=== PATIENT | female | born 1970 | race Caucasian/White ===

== ENCOUNTER 2018-09-28 12:17 | Observation (INO) | payer MEDICARE, SELFPAY ==
[2018-09-28] VITALS (16 sets, daily range): BP systolic 117–158; BP diastolic 71–114; PULSE 73–86; RESP 15–20; TEMP 35.7–36.9; O2SAT 95–99; BMI 51.5; BMI 51.6; BMI 52.9
--- NOTE | 2018-09-28 12:58 | EKG12_ITS ---
Test Reason : CP Blood Pressure : / mmHG Vent. Rate : 079 BPM Atrial Rate : 079 BPM P-R Int : 144 ms QRS Dur : 098 ms QT Int : 378 ms P-R-T Axes : -13 -04 024 degrees QTc Int : 433 ms Normal sinus rhythm Normal ECG Confirmed by ANDER LUCIANO, ARISTEO ([id number]), offline editor RICHARD GARCIA ([id number]) on 10/01/2018 3:37:12 PM Referred By: KAREN Confirmed By:ARISTEO WORTHINGTON MD
--- NOTE | 2018-09-28 12:59 | RAD_ITS ---
STUDY: X-RAY CHEST REASON FOR EXAM: Female, 48 years old. Right-sided chest pain. TECHNIQUE: PA and lateral views of the chest. COMPARISON: None. FINDINGS: The lungs are clear and expanded. Scattered calcified granulomas. There is no demonstrated pleural abnormality. Normal size heart. Normal mediastinum and delicia. Normal visualized pulmonary arteries. Normal visualized aortic arch and descending thoracic aorta. There is a mild dextroscoliosis of the thoracic spine. Normal visualized ribs, clavicles, and shoulders. There is no demonstrated abnormality of the visualized soft tissue structures of the upper abdomen. RAD/Chest PA and Lateral IMPRESSION: Normal x-ray examination of the chest. Electronically Signed: Carlyle Easley MD at 13:25 EST Tel [phone], Service support ,
--- NOTE | 2018-09-28 13:34 | PCA ---
NO OLD EKG
[2018-09-28 14:04] LABS: Absolute Lymphocyte Count 1.81 X10^3/ul (0.83-4.51); Absolute Neutrophil Count 2.5 X10^3/uL (2.0-7.7); Basophil# 0.05 X10^3/uL; Eosinophil# 0.29 X10^3/uL; Eosinophils% 5.7 % (0-5); Hematocrit 38.2 % (37-47); Hemoglobin 12.3 g/dl (12.0-15.0); Lymphocyte # 1.81 X10^3/ul (4.0); Lymphocyte % 35.4 % (19-41); Mean Corp Hgb Conc 32.2 g/gl (32-36); Mean Corpuscular Hgb 28.1 pg (27.0-32.0); Mean Corpuscular Volume 87.2 fL (81-99); Mean Platelet Vol. 9.4 fl (6.2-12.0); Monocyte# 0.41 X10^3/uL; Neutrophil # 2.48 X10^3/uL (2.7-7.7); Neutrophil % 48.3 % (47-70); POSITIVE COUNT NO; POSITIVE DIFFERENTIAL NO; POSITIVE MORPHOLOGY NO; Platelet Count 155 K/mm3 (150-450); Red Blood Count 4.38 M/mm3 (4.2-5.4); White Blood Count 5.1 K/mm3 (4.4-11.0)
[2018-09-28 14:17] LABS: Anion Gap 5 (5-15); BUN 10 mg/dL (7-18); BUN/Creat Ratio 12.6 RATIO (10-20); Calcium,Total 9.5 mg/dL (8.5-10.1); Chloride 103 mmol/L (98-107); EST Glomerular Filtration Rate 82 mL/min (>60); Est Glom Filt Rate - Afr Amer 99 mL/min (>60); Estimated Creatinine Clearance 81.38 ml/min; Glucose 233 mg/dL (74-106); Potassium 4.2 mmol/L (3.5-5.1); Sodium Level 137 mmol/L (136-145)
[2018-09-28 14:20] LABS: Erythrocyte Sedimentation Rate 21 mm/hr (0-20)
[2018-09-28] MEDS: Aspirin 81 MG TAB.CHEW 324 MG PO (14:41)
[2018-09-28 15:02] LABS: D-Dimer Quantitative (DVT/PE) 0.39 FEU/ug/m (0.27-0.49)
--- NOTE | 2018-09-28 15:37 | ED.VISSUMM ---
- ER Visit Summary Date of Service: 09/28/18 Chief Complaint: S pain [] History of Present Illness: The patient is a 48 F [presents the emergency department complaint chest pain that started 3 weeks ago. Patient had intermittent discomfort especially with exertion. Patient states that her heart seems to race at times with activity she gets winded with minimal activity. Patient had some pressure in the center of her chest at times radiating to her shoulders. Patient states she had a stress that she thinks about 8 years ago before 1 of her surgeries and initially she flunked it but then she passed the second 1 apparently and she is never had a heart catheterization or any type of intervention. Patient denies recent travel or surgery. She denies any fever or recent illness.] Physical Examination: [HEENT-PERRLA, EOMI. Cranial nerves II through XII grossly intact. TMs clear. Mucous membranes moist. No adenopathy. Cardiovascular-regular rate and rhythm without murmur or ectopy Lungs-clear to auscultation, chest wall stable without crepitus or subcu emphysema Abdomen-normoactive bowel sounds, soft, nontender, no rebound or rigidity, no peritoneal signs. Extremities-intact ?4, normal range of motion, normal pulses, atraumatic] Test Results: [EKG obtained on arrival showed a sinus rhythm with a ventricular rate of 79 bpm. CBC with differential showing a 5.1, hemoglobin 12, hematocrit 30, platelet 155. Chemistries unremarkable. Troponin was less than 0.015. Sed rate was 21. D-dimer was 0.39. Chest x-ray showed nothing acute.] Emergency Department Course and Treatment: [Patient received aspirin in the emergency department and sublingual nitro which mostly resolved her pain.] Treatment Plan: [Admit for further workup and evaluation of her chest pain.] Disposition: [Admit] Impression: [Chest pain-rule out acute coronary syndrome] This note was generated with [employer] dictation software. It may contain incorrect words, spelling, and punctuation that were not noted in review of the chart prior to signing ED Disposition - Plan for ED Patient: Chief Complaint: Chest Pain Referrals: Letty Perknis MD [Primary Care Provider] -
--- NOTE | 2018-09-28 15:59 | PCM.HP.STD ---
Problem List (1) Chest pain Status: Acute Qualifiers: Chest pain type: unspecified Qualified Code(s): R07.9 - Chest pain, unspecified (2) HTN (hypertension) Status: Chronic Qualifiers: Hypertension type: essential hypertension Qualified Code(s): I10 - Essential (primary) hypertension (3) HLD (hyperlipidemia) Status: Chronic Qualifiers: Hyperlipidemia type: unspecified Qualified Code(s): E78.5 - Hyperlipidemia, unspecified (4) Morbid obesity Status: Chronic (5) SAMUEL (obstructive sleep apnea) Status: Chronic (6) Leg muscle spasm Status: Chronic Qualifiers: Laterality: bilateral Qualified Code(s): M62.838 - Other muscle spasm (7) Hypothyroidism Status: Chronic Qualifiers: Hypothyroidism type: unspecified Qualified Code(s): E03.9 - Hypothyroidism, unspecified History of Present Illness Date of Admission: 09/28/18 Chief Complaint: Chest pain The patient is a 48 y/o F w/ PMHx: Diabetes mellitus type II, Morbid Obesity, HTN, HLD, SAMUEL, GERD, Hypothyroidism, History of Uterine CA who presents to the [facility] ED on 09/28/18 with onset of R sided chest pressure in addition to midsternal region sharp stabbing pain with associated dyspnea occurring at rest and exertion both intermittently over the last 3 weeks w/ additionally onset exertional dyspnea with minimal exertion over the last 2 weeks additionally. Chest discomfort w/ these episodes with may last minutes 10/10, currently she rates some R sided pressure which has improved as 1-2/10. She notes having had a stress test > 8 years prior which was initially positive but repeat was negative prior to operative interventions at that time. In the ED work-up included T 96.3, heart rate 79, BP initially 150/114--> 136/85, respiratory rate 18, 95% on room air, CBC with WBC 5.1, heme globin 12.3, platelet 155, ESR 21, d-dimer 0.39, BMP with glucose 233, troponin < 0.015, EKG w/ NSR without acute findings, chest x-ray unremarkable. In the ED patient ministered aspirin, nitroglycerin sublingual x3. Past Medical History Past Medical History (Chronic Problems): Chronic Problems HTN (hypertension) (Chronic) HLD (hyperlipidemia) (Chronic) Morbid obesity (Chronic) SAMUEL (obstructive sleep apnea) (Chronic) Leg muscle spasm (Chronic) Hypothyroidism (Chronic) Allergies No Known Allergies Allergy (Verified 09/28/18 12:17) Home Medications: Ambulatory Orders Medication Instructions Recorded Ascorbic Acid [Vitamin C] 2,000 mg PO PRN PRN 09/28/18 Atorvastatin Calcium [Lipitor] 20 mg PO QHS 09/28/18 Diazepam 2 mg PO DAILY PRN PRN 09/28/18 Furosemide [Lasix] 20 mg PO DAILY PRN PRN 09/28/18 Glimepiride [Amaryl] 4 mg PO DAILY 09/28/18 Levothyroxine [Synthroid] 150 mcg PO DAILY 09/28/18 Lisinopril [Zestril] 40 mg PO DAILY 09/28/18 Metformin HCl [Glucophage] 1,000 mg PO BID 09/28/18 Metformin HCl [Glucophage] 500 mg PO LUNCH 09/28/18 Tizanidine HCl [Zanaflex] 4 mg PO DAILY PRN PRN 09/28/18 Surgical History: - - Total abdominal hysterectomy. 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 Smoking Status: Former smoker - Quit smoking approximately 2000, smoked approximately one half to three-quarter pack per day cigarettes for approximately 2 years. Tobacco Use: Non-smoker Alcohol: None Drugs: None - *Family History Maternal History Items: - - Patient notes a maternal and paternal family history of heart disease, hypertension, hyperlipidemia, diabetes and cancer. Paternal History Items: - - Patient notes a maternal and paternal family history of heart disease, hypertension, hyperlipidemia, diabetes and cancer. Review of Systems Constitutional: Reports: Fatigue. Denies: Chills, Fever, Weight Change HEENT: Denies: Head Aches, Sinus Congestion, Sinus Drainage Cardiovascular: Reports: Chest Pain, Chest Pressure, Heaviness, Palpitations. Denies: Light Headedness, Orthopnea, Paroxysmal Noc. Dyspnea, Syncope Respiratory: Reports: Shortness of breath upon exertion. Denies: Cough, Shortness of Breath, Shortness of breath at rest, Sputum production Gastrointestinal: Denies: Abdominal Pain, Nausea, Vomiting Genitourinary: Denies: Dysuria Musculoskeletal: Reports: Back Pain, Leg Pain. Denies: Joint Pain, Joint Tenderness Skin: Denies: Rash, Wounds Neurological: Denies: Numbness, Tingling, Focal weakness Psychiatric: Denies: Anxiety, Depression, Homicidal Ideations, Suicidal Ideations Hematologic/ Lymphatic: Denies: Easy Bruising, Easy Bleeding VTE Information - Inpt Only VTE Present on Admission: No VTE Mechan Device Prophylaxis: SCD's VTE Pharm Prophylaxis ordered?: Yes Patient Problems: Active and Suspected Problems Chest pain (Acute) Subjective: Seated upright in the ED bed, notes chest discomfort improved, only mild R pressure currently. Objective: Physical Examination: General: awake, alert, oriented x 3 and cooperative, seated upright in bed in no apparent distress. Skin: normal color, turgor, no icterus, cyanosis. HEENT: AT/NC, EOMI, PERRLA, MMM, no carotid bruits or JVD noted; however, thickened neck makes examination difficult. Lungs: CTA bilaterally, moderate effort, moderately decreased BL bases, no rales, ronchi or wheezing. Heart: Regular rate and rhythm; no gallop, rub audible. Abdomen: soft, morbidly obese, NTTP, ND, normal BS, unable to discern HSM secondary to habitus. Extremities: no cyanosis, clubbing, BL ankle non-pitting edema. Neurological: patient awake, alert, oriented x 3; cognitive function intact; pupils equally reactive to light and accomodation; cranial nerves II-XII grossly normal, moving all 4 extremities, no focal deficits, strength moderately globally decreased. Psychiatric: affect appears normal, no acute evidence of depressive or anxiety feelings. - Physical Exam Vital Signs Temp Pulse Resp BP Pulse Ox 96.3 F L 84 18 136/85 H 95 09/28/18 12:18 09/28/18 14:57 09/28/18 14:57 09/28/18 14:57 09/28/18 14:57 Oxygen Delivery Method Room Air Weight: 319 lb 10.724 oz Body Mass Index (BMI) 51.5 Laboratory Tests Past 24 Hrs 09/28/18 09/28/18 09/28/18 13:45 13:45 13:54 WBC 5.1 RBC 4.38 Hgb 12.3 Hct 38.2 MCV 87.2 MCH 28.1 MCHC 32.2 RDW 15.0 H RDW Differential 47.0 H Plt Count 155 MPV 9.4 Immature Gran % (Auto) 1.600 H Neut % (Auto) 48.3 Lymph % (Auto) 35.4 Brantley % (Auto) 8.0 Eos % (Auto) 5.7 H Baso % (Auto) 1.0 Absolute Neuts (auto) 2.5 Absolute Lymphs (auto) 1.81 Total Counted Not Reportable ESR 21 H D-Dimer Quant (PE/DVT) 0.39 Sodium Potassium Chloride Carbon Dioxide Anion Gap BUN Creatinine Estim Creat Clear Calc Est GFR (MDRD) Af Amer Est GFR (MDRD) Non-Af BUN/Creatinine Ratio Glucose Calcium Troponin I 09/28/18 13:54 WBC RBC Hgb Hct MCV MCH MCHC RDW RDW Differential Plt Count MPV Immature Gran % (Auto) Neut % (Auto) Lymph % (Auto) Brantley % (Auto) Eos % (Auto) Baso % (Auto) Absolute Neuts (auto) Absolute Lymphs (auto) Total Counted ESR D-Dimer Quant (PE/DVT) Sodium 137 Potassium 4.2 Chloride 103 Carbon Dioxide 29.0 Anion Gap 5 BUN 10 Creatinine 0.80 Estim Creat Clear Calc 81.38 Est GFR (MDRD) Af Amer 99 Est GFR (MDRD) Non-Af 82 BUN/Creatinine Ratio 12.6 Glucose 233 H Calcium 9.5 Troponin I < 0.015 Assessment/Plan All Active Problems Chest pain (Acute) The patient is a 48 y/o F w/ PMHx: Diabetes mellitus type II, Morbid Obesity, HTN, HLD, SAMUEL, GERD, Hypothyroidism, History of Uterine CA who presents to the [facility] ED on 09/28/18 with onset of R sided chest pressure in addition to midsternal region sharp stabbing pain with associated dyspnea occurring at rest and exertion both intermittently over the last 3 weeks w/ additionally onset exertional dyspnea with minimal exertion over the last 2 weeks additionally. (1) Chest Pain, Exertional Dyspnea: ED work-up included T 96.3, heart rate 79, BP initially 150/114--> 136/85, respiratory rate 18, 95% on room air, CBC with WBC 5.1, heme globin 12.3, platelet 155, ESR 21, d-dimer 0.39, BMP with glucose 233, troponin < 0.015, EKG w/ NSR without acute findings, chest x-ray unremarkable. Will admit to PCU, place on a monitored bed to assure no acute myocardial infarction with serial cardiac enzymes and EKGs. Patient is unable to perform exercise thus will proceed with AM nuclear stress testing. ASA, NG, morphine. FLP in AM. Mag pending. (2) Hypertension: Continue home regimen including lisinopril, PRN hydralazine. (3) Hyperlipidemia: Continue home statin regimen. AM FLP. (4) Chronic BL LE Muscle Spasms, Severe: Continue home PRN diazepam and tizanidine regimen. (5) Chronic Lumbar DDD: Frequent position changes encouraged. (6) Morbid Obesity: Weight loss and lifestyle changes encouraged, nutrition consulted. (7) Diabetes mellitus type II: Hold oral home regimen, continue home insulin regimen, ADA diet, accu checks w/ ISS, nutrition consulted for education and teaching, she notes most recently HgbA1c 6.9%. (8) Hypothyroidism: Continue home synthroid regimen, TSH and FT4 pending. (9) SAMUEL: CPAP q HS. (10) DVT Prophylaxis: SCDs, lovenox. Code Visit OBSV E&M: [id number] Initial observation care L3
--- NOTE | 2018-09-28 17:32 | EKG12_ITS ---
Test Reason : CP Blood Pressure : / mmHG Vent. Rate : 069 BPM Atrial Rate : 069 BPM P-R Int : 152 ms QRS Dur : 098 ms QT Int : 412 ms P-R-T Axes : -09 003 004 degrees QTc Int : 441 ms Normal sinus rhythm Normal ECG When compared with ECG of 28-SEP-2018 12:12, MANUAL COMPARISON REQUIRED, DATA IS UNCONFIRMED Confirmed by ANDER LUCIANO, ARISTEO ([id number]), senior editor RICHARD GARCIA ([id number]) on 10/01/2018 4:01:44 PM Referred By: HANH Confirmed By:ARISTEO WORTHINGTON MD
[2018-09-28 18:35] LABS: Magnesium 1.8 mg/dL (1.6-2.6); T4 Free Direct 1.18 ng/dL (0.76-1.46)
--- NOTE | 2018-09-28 19:53 | CPS ---
pt has own cpap at home -did not bring in -did not want hospitals
[2018-09-28 22:31] LABS: Bedside Glucose 175 mg/dL (70-110)
[2018-09-28] MEDS: Atorvastatin Calcium 20 MG Tablet PO (22:34)
[2018-09-28] MEDS: Famotidine 20 MG Tablet PO (22:34)
[2018-09-28] MEDS: Insulin Lispro 100 UNIT/ML INSULN.PEN SC (22:35)
[2018-09-28] MEDS: 0.9% Normal Saline 1,000 ML 100 ML IV (22:35)
[2018-09-29] VITALS (9 sets, daily range): BP systolic 101–149; BP diastolic 59–90; PULSE 70–81; RESP 14–18; TEMP 36.6–36.8; O2SAT 88–96
[2018-09-29 05:20] LABS: Hematocrit 36.2 % (37-47); Hemoglobin 11.5 g/dl (12.0-15.0); Mean Corp Hgb Conc 31.8 g/gl (32-36); Mean Corpuscular Hgb 28.3 pg (27.0-32.0); Mean Corpuscular Volume 89.2 fL (81-99); Mean Platelet Vol. 9.2 fl (6.2-12.0); Platelet Count 138 K/mm3 (150-450); RBC Distribution Width CV 15.2 % (11.6-14.6); RBC Distribution Width SD 48.9 fl (35.1-43.9); Red Blood Count 4.06 M/mm3 (4.2-5.4); White Blood Count 5.6 K/mm3 (4.4-11.0)
[2018-09-29 05:23] LABS: Scan Indicated on CBC? Y/N NO
[2018-09-29 05:30] LABS: Prothrombin Time (Protime)PT. 13.5 SECONDS (11.7-14.9)
[2018-09-29 05:31] LABS: Partial Thromboplast Time 26.5 Seconds (24.1-36.2)
--- NOTE | 2018-09-29 05:55 | EKG12_ITS ---
Test Reason : AM Blood Pressure : / mmHG Vent. Rate : 069 BPM Atrial Rate : 069 BPM P-R Int : 174 ms QRS Dur : 100 ms QT Int : 436 ms P-R-T Axes : 025 -10 -01 degrees QTc Int : 467 ms Normal sinus rhythm Normal ECG When compared with ECG of 28-SEP-2018 17:53, MANUAL COMPARISON REQUIRED, DATA IS UNCONFIRMED Confirmed by ANDER LUCIANO, ARISTEO ([id number]), manuscript editor RICHARD GARCIA ([id number]) on 10/01/2018 4:00:33 PM Referred By: HANH Confirmed By:ARISTEO WORTHINGTON MD
[2018-09-29 06:06] LABS: ALB/GLOB Ratio 0.9 RATIO (0.9-2.4); AST(SGOT) 13 U/L (15-37); Alanine Aminotransfer ALT/SGPT 29 U/L (13-56); Albumin, Serum 3.1 g/dL (3.2-5.0); Alkaline Phosphatase 75 U/L (45-117); Anion Gap 9 (5-15); BUN 12 mg/dL (7-18); BUN/Creat Ratio 14.4 RATIO (10-20); Calcium,Total 8.7 mg/dL (8.5-10.1); Chloride 103 mmol/L (98-107); Cholesterol 154 mg/dL (200); Creatinine, Serum 0.83 mg/dL (0.55-1.02); EST Glomerular Filtration Rate 78 mL/min (>60); Est Glom Filt Rate - Afr Amer 94 mL/min (>60); Estimated Creatinine Clearance 78.44 ml/min; Globulin 3.4 g/dL (2.2-4.2); Glucose 203 mg/dL (74-106); High Density Lipoprotein 23 mg/dL; Potassium 4.1 mmol/L (3.5-5.1); Protein, Total 6.5 g/dL (6.4-8.2); Sodium Level 142 mmol/L (136-145); Triglycerides 320 mg/dL; Very Low Density Lipoprotein 64 mg/dL (5-40)
[2018-09-29] MEDS: Lisinopril 40 MG Tablet PO (06:10)
[2018-09-29] MEDS: Levothyroxine 150 MCG Tablet PO (06:10)
[2018-09-29] MEDS: Aspirin E.C. 81 MG Tablet PO (06:11)
[2018-09-29] MEDS: Nystatin/Triamcin Oint 1 APPLIC TOPICAL (06:11)
[2018-09-29 07:01] LABS: Bedside Glucose 238 mg/dL (70-110)
--- NOTE | 2018-09-29 08:00 | STEWCON_ITS ---
Reason For Study: CHEST PAIN Stress Results Protocol: Dobutamine Stress Echocardiogram Maximum Predicted HR: 173 bpm Target HR: 147 bpm % Maximum Predicted HR: 92 % DurationHeart Rate Stage (mm:ss) (bpm) BP Dose Comment BASELINE 80 142/89 9 ML DILUTED DEFINITY GIVEN DURING STRESS DSE- 10 MCG 4:04 82 120/4710.00 DSE- 20 MCG 5:30 160 158/8120.00PRESSURE OVER R BREAST AREA INTO ARMPIT, A 5/10 RECOVERY 96 137/92 PRESSURE OVER R BREAST AREA A 1-210 Stress Duration: 9:34 mm:ss Maximum Stress HR: 160 bpm Baseline Echocardiogram Findings Stress Echo Wall motion Data Resting WM Intermediate WM Stress WM Resting Wall Motion Wall Motion Stress No regional wall motion No regional wall motion abnormalities noted. abnormalities noted. Ejection Fraction 60 %. Ejection Fraction 75 %. Stress Results Drug infusion was stopped due to achievement of target heart rate. Normal blood pressure response to exercise. EKG Data Baseline ECG demonstrates normal sinus rhythm with a rate of 75 beats per minute. Normal intervals are noted. The resting blood pressure was 142/89. The patient was titrated from 10 mcg to a maximum of 20 mcg of dobutamine during the stress. The maximum heart rate attained was 160 beats per minute. This was 92% of maximum predicted heart rate. At peak infusion, upsloping ST changes only were noted, which did not meet the criteria for ischemia. The peak blood pressure was 158/81. No arrhythmias noted. Interpretation Summary Normal resting LV systolic function. Nonstenotic valves. With stress, the LV size decreased and all segments augmented normally. The LVEF increased from 60% to 70%. Negative for ischemia at 92% of MPHR and at 1 METS. The patient was titrated from 10 mcg to a maximum of 20 mcg of dobutamine during the stress. Normal dobutamine stress echo Ordering Physician: Estephania Espinoza Referring Physician: Letty Perkins M.D. Performed By: Michell Hood RDCS
[2018-09-29] MEDS: Famotidine 20 MG Tablet PO (11:12)
[2018-09-29] MEDS: 0.9% NaCl Peripheral Flush Adult/Peds IV (11:12)
[2018-09-29] MEDS: Insulin Lispro 100 UNIT/ML INSULN.PEN SC (11:15)
[2018-09-29 11:50] LABS: Bedside Glucose 195 mg/dL (70-110)
--- NOTE | 2018-09-29 11:51 | DS.PCM_ITS ---
Discharge Date and Diagnosis Date of Admission: 09/28/18 Date of Discharge: 09/29/18 - Primary Discharge Diagnosis Active and Suspected Problems Chest pain (Acute) - Secondary Discharge Diagnosis Chronic Problems HTN (hypertension) (Chronic) HLD (hyperlipidemia) (Chronic) Morbid obesity (Chronic) SAMUEL (obstructive sleep apnea) (Chronic) Leg muscle spasm (Chronic) Hypothyroidism (Chronic) Hospital Course and Treatment Imaging Results: 09/29/18 08:00 Stress Test Echo W/Contrast [ECHO] Routine Laboratory Tests 09/29/18 09/29/18 09/29/18 Range/Units 11:13 06:52 05:05 WBC (4.4-11.0) K/mm3 RBC (4.2-5.4) M/mm3 Hgb (12.0-15.0) g/dl Hct (37-47) % MCV (81-99) fL MCH (27.0-32.0) pg MCHC (32-36) g/gl RDW (11.6-14.6) % RDW Differential (35.1-43.9) fl Plt Count (150-450) K/mm3 MPV (6.2-12.0) fl Immature Gran % (Auto) (0.0-0.9) % Neut % (Auto) (47-70) % Lymph % (Auto) (19-41) % [place] % (Auto) (0-10) % Eos % (Auto) (0-5) % Baso % (Auto) (0-1) % Absolute Neuts (auto) (2.0-7.7) X10^3/uL Absolute Lymphs (auto) (0.83-4.51) X10^3/ul Total Counted ESR (0-20) mm/hr PT 13.5 (11.7-14.9) SECONDS INR 1.0 APTT 26.5 (24.1-36.2) Seconds D-Dimer Quant (PE/DVT) (0.27-0.49) FEU/ug/m Sodium (136-145) mmol/L Potassium (3.5-5.1) mmol/L Chloride (98-107) mmol/L Carbon Dioxide (21.0-32.0) mmol/L Anion Gap (5-15) BUN (7-18) mg/dL Creatinine (0.55-1.02) mg/dL Estim Creat Clear Calc ml/min Est GFR (MDRD) Af Amer (>60) mL/min Est GFR (MDRD) Non-Af (>60) mL/min BUN/Creatinine Ratio (10-20) RATIO Glucose (74-106) mg/dL Calcium (8.5-10.1) mg/dL Magnesium (1.6-2.6) mg/dL Total Bilirubin (0.20-1.00) mg/dL AST (15-37) U/L ALT (13-56) U/L Alkaline Phosphatase (45-117) U/L Troponin I (<0.045) ng/mL Total Protein (6.4-8.2) g/dL Albumin (3.2-5.0) g/dL Globulin (2.2-4.2) g/dL Albumin/Globulin Ratio (0.9-2.4) RATIO Triglycerides ( - 199) mg/dL Cholesterol (200) mg/dL LDL Cholesterol (0-130) mg/dL VLDL Cholesterol (5-40) mg/dL HDL Cholesterol (40 - ) mg/dL TSH (0.358-3.74) uIU/mL Free T4 (0.76-1.46) ng/dL POC Glucose 195 H 238 H (70-110) mg/dL 09/29/18 09/29/18 09/28/18 Range/Units 05:05 05:05 22:26 WBC 5.6 (4.4-11.0) K/mm3 RBC 4.06 L (4.2-5.4) M/mm3 Hgb 11.5 L (12.0-15.0) g/dl Hct 36.2 L (37-47) % MCV 89.2 (81-99) fL MCH 28.3 (27.0-32.0) pg MCHC 31.8 L (32-36) g/gl RDW 15.2 H (11.6-14.6) % RDW Differential 48.9 H (35.1-43.9) fl Plt Count 138 L (150-450) K/mm3 MPV 9.2 (6.2-12.0) fl Immature Gran % (Auto) (0.0-0.9) % Neut % (Auto) (47-70) % Lymph % (Auto) (19-41) % [place] % (Auto) (0-10) % Eos % (Auto) (0-5) % Baso % (Auto) (0-1) % Absolute Neuts (auto) (2.0-7.7) X10^3/uL Absolute Lymphs (auto) (0.83-4.51) X10^3/ul Total Counted ESR (0-20) mm/hr PT (11.7-14.9) SECONDS INR APTT (24.1-36.2) Seconds D-Dimer Quant (PE/DVT) (0.27-0.49) FEU/ug/m Sodium 142 (136-145) mmol/L Potassium 4.1 (3.5-5.1) mmol/L Chloride 103 (98-107) mmol/L Carbon Dioxide 30.0 (21.0-32.0) mmol/L Anion Gap 9 (5-15) BUN 12 (7-18) mg/dL Creatinine 0.83 (0.55-1.02) mg/dL Estim Creat Clear Calc 78.44 ml/min Est GFR (MDRD) Af Amer 94 (>60) mL/min Est GFR (MDRD) Non-Af 78 (>60) mL/min BUN/Creatinine Ratio 14.4 (10-20) RATIO Glucose 203 H (74-106) mg/dL Calcium 8.7 (8.5-10.1) mg/dL Magnesium (1.6-2.6) mg/dL Total Bilirubin 0.50 (0.20-1.00) mg/dL AST 13 L (15-37) U/L ALT 29 (13-56) U/L Alkaline Phosphatase 75 (45-117) U/L Troponin I (<0.045) ng/mL Total Protein 6.5 (6.4-8.2) g/dL Albumin 3.1 L (3.2-5.0) g/dL Globulin 3.4 (2.2-4.2) g/dL Albumin/Globulin Ratio 0.9 (0.9-2.4) RATIO Triglycerides 320 H ( - 199) mg/dL Cholesterol 154 (200) mg/dL LDL Cholesterol 67 (0-130) mg/dL VLDL Cholesterol 64 H (5-40) mg/dL HDL Cholesterol 23 L (40 - ) mg/dL TSH 2.00 (0.358-3.74) uIU/mL Free T4 (0.76-1.46) ng/dL POC Glucose 175 H (70-110) mg/dL 09/28/18 09/28/18 09/28/18 Range/Units 21:20 18:18 13:54 WBC (4.4-11.0) K/mm3 RBC (4.2-5.4) M/mm3 Hgb (12.0-15.0) g/dl Hct (37-47) % MCV (81-99) fL MCH (27.0-32.0) pg MCHC (32-36) g/gl RDW (11.6-14.6) % RDW Differential (35.1-43.9) fl Plt Count (150-450) K/mm3 MPV (6.2-12.0) fl Immature Gran % (Auto) (0.0-0.9) % Neut % (Auto) (47-70) % Lymph % (Auto) (19-41) % [place] % (Auto) (0-10) % Eos % (Auto) (0-5) % Baso % (Auto) (0-1) % Absolute Neuts (auto) (2.0-7.7) X10^3/uL Absolute Lymphs (auto) (0.83-4.51) X10^3/ul Total Counted ESR (0-20) mm/hr PT (11.7-14.9) SECONDS INR APTT (24.1-36.2) Seconds D-Dimer Quant (PE/DVT) (0.27-0.49) FEU/ug/m Sodium (136-145) mmol/L Potassium (3.5-5.1) mmol/L Chloride (98-107) mmol/L Carbon Dioxide (21.0-32.0) mmol/L Anion Gap (5-15) BUN (7-18) mg/dL Creatinine (0.55-1.02) mg/dL Estim Creat Clear Calc ml/min Est GFR (MDRD) Af Amer (>60) mL/min Est GFR (MDRD) Non-Af (>60) mL/min BUN/Creatinine Ratio (10-20) RATIO Glucose (74-106) mg/dL Calcium (8.5-10.1) mg/dL Magnesium 1.8 (1.6-2.6) mg/dL Total Bilirubin (0.20-1.00) mg/dL AST (15-37) U/L ALT (13-56) U/L Alkaline Phosphatase (45-117) U/L Troponin I < 0.015 < 0.015 (<0.045) ng/mL Total Protein (6.4-8.2) g/dL Albumin (3.2-5.0) g/dL Globulin (2.2-4.2) g/dL Albumin/Globulin Ratio (0.9-2.4) RATIO Triglycerides ( - 199) mg/dL Cholesterol (200) mg/dL LDL Cholesterol (0-130) mg/dL VLDL Cholesterol (5-40) mg/dL HDL Cholesterol (40 - ) mg/dL TSH (0.358-3.74) uIU/mL Free T4 1.18 (0.76-1.46) ng/dL POC Glucose (70-110) mg/dL 09/28/18 09/28/18 09/28/18 Range/Units 13:54 13:54 13:45 WBC 5.1 (4.4-11.0) K/mm3 RBC 4.38 (4.2-5.4) M/mm3 Hgb 12.3 (12.0-15.0) g/dl Hct 38.2 (37-47) % MCV 87.2 (81-99) fL MCH 28.1 (27.0-32.0) pg MCHC 32.2 (32-36) g/gl RDW 15.0 H (11.6-14.6) % RDW Differential 47.0 H (35.1-43.9) fl Plt Count 155 (150-450) K/mm3 MPV 9.4 (6.2-12.0) fl Immature Gran % (Auto) 1.600 H (0.0-0.9) % Neut % (Auto) 48.3 (47-70) % Lymph % (Auto) 35.4 (19-41) % [place] % (Auto) 8.0 (0-10) % Eos % (Auto) 5.7 H (0-5) % Baso % (Auto) 1.0 (0-1) % Absolute Neuts (auto) 2.5 (2.0-7.7) X10^3/uL Absolute Lymphs (auto) 1.81 (0.83-4.51) X10^3/ul Total Counted Not Reportable ESR (0-20) mm/hr PT (11.7-14.9) SECONDS INR APTT (24.1-36.2) Seconds D-Dimer Quant (PE/DVT) 0.39 (0.27-0.49) FEU/ug/m Sodium 137 (136-145) mmol/L Potassium 4.2 (3.5-5.1) mmol/L Chloride 103 (98-107) mmol/L Carbon Dioxide 29.0 (21.0-32.0) mmol/L Anion Gap 5 (5-15) BUN 10 (7-18) mg/dL Creatinine 0.80 (0.55-1.02) mg/dL Estim Creat Clear Calc 81.38 ml/min Est GFR (MDRD) Af Amer 99 (>60) mL/min Est GFR (MDRD) Non-Af 82 (>60) mL/min BUN/Creatinine Ratio 12.6 (10-20) RATIO Glucose 233 H (74-106) mg/dL Calcium 9.5 (8.5-10.1) mg/dL Magnesium (1.6-2.6) mg/dL Total Bilirubin (0.20-1.00) mg/dL AST (15-37) U/L ALT (13-56) U/L Alkaline Phosphatase (45-117) U/L Troponin I < 0.015 (<0.045) ng/mL Total Protein (6.4-8.2) g/dL Albumin (3.2-5.0) g/dL Globulin (2.2-4.2) g/dL Albumin/Globulin Ratio (0.9-2.4) RATIO Triglycerides ( - 199) mg/dL Cholesterol (200) mg/dL LDL Cholesterol (0-130) mg/dL VLDL Cholesterol (5-40) mg/dL HDL Cholesterol (40 - ) mg/dL TSH (0.358-3.74) uIU/mL Free T4 (0.76-1.46) ng/dL POC Glucose (70-110) mg/dL 09/28/18 Range/Units 13:45 WBC (4.4-11.0) K/mm3 RBC (4.2-5.4) M/mm3 Hgb (12.0-15.0) g/dl Hct (37-47) % MCV (81-99) fL MCH (27.0-32.0) pg MCHC (32-36) g/gl RDW (11.6-14.6) % RDW Differential (35.1-43.9) fl Plt Count (150-450) K/mm3 MPV (6.2-12.0) fl Immature Gran % (Auto) (0.0-0.9) % Neut % (Auto) (47-70) % Lymph % (Auto) (19-41) % [place] % (Auto) (0-10) % Eos % (Auto) (0-5) % Baso % (Auto) (0-1) % Absolute Neuts (auto) (2.0-7.7) X10^3/uL Absolute Lymphs (auto) (0.83-4.51) X10^3/ul Total Counted ESR 21 H (0-20) mm/hr PT (11.7-14.9) SECONDS INR APTT (24.1-36.2) Seconds D-Dimer Quant (PE/DVT) (0.27-0.49) FEU/ug/m Sodium (136-145) mmol/L Potassium (3.5-5.1) mmol/L Chloride (98-107) mmol/L Carbon Dioxide (21.0-32.0) mmol/L Anion Gap (5-15) BUN (7-18) mg/dL Creatinine (0.55-1.02) mg/dL Estim Creat Clear Calc ml/min Est GFR (MDRD) Af Amer (>60) mL/min Est GFR (MDRD) Non-Af (>60) mL/min BUN/Creatinine Ratio (10-20) RATIO Glucose (74-106) mg/dL Calcium (8.5-10.1) mg/dL Magnesium (1.6-2.6) mg/dL Total Bilirubin (0.20-1.00) mg/dL AST (15-37) U/L ALT (13-56) U/L Alkaline Phosphatase (45-117) U/L Troponin I (<0.045) ng/mL Total Protein (6.4-8.2) g/dL Albumin (3.2-5.0) g/dL Globulin (2.2-4.2) g/dL Albumin/Globulin Ratio (0.9-2.4) RATIO Triglycerides ( - 199) mg/dL Cholesterol (200) mg/dL LDL Cholesterol (0-130) mg/dL VLDL Cholesterol (5-40) mg/dL HDL Cholesterol (40 - ) mg/dL TSH (0.358-3.74) uIU/mL Free T4 (0.76-1.46) ng/dL POC Glucose (70-110) mg/dL Operations: None Procedures: Stress test Summary of Care Provided: The patient is a 48 year old F [] Patient is a 48-year-old female with a history of hypertension, hyperlipidemia, obstructive sleep apnea, hypothyroidism and morbid obesity. She was admitted on 09/28/2018 with complaint of right-sided chest pressure in addition to pain in the midsternal region with associated exertional dyspnea also dyspnea at rest. Initial troponin was negative and EKG showed no acute ST changes. She was admitted and managed for chest pain to rule out ACS. She had a stress echocardiogram done on 09/29/2018 which was negative for any ischemia and showed preserved ejection fraction. Patient remained stable and was discharged home on 09/29/2018 with a prescription for sublingual nitroglycerin and p.o. aspirin. She is follow-up with her PCP in 1 week. Patient seen and examined prior to discharge. She had no complaints and felt well. She denied any fever or chills, any cough or chest pain, any shortness of breath, abdominal pain, any diarrhea vomiting. Review of systems otherwise negative. Labs and vitals reviewed. Home medications reviewed and reconciled. - Physical Exam General: Alert, Oriented x3, Cooperative HEENT: Atraumatic, PERRLA, EOMI, Normocephalic Oral: Moist Mucosa Neck: Supple, No JVD, Negative Carotid Bruits Lungs: Clear to auscultation, Normal air movement, No rhonchi, No wheeze, No rales Cardiovascular: Regular rate, Regular Rhythm, Normal S1, Normal S2, No murmurs Abdomen: Bowel Sounds Present, Soft, Non Tender, Non-Distended, No Hepato- splenomegaly Extremities: No clubbing, No cyanosis, No edema, Capillary Refill Less than 3 Seconds Skin: No rashes, No breakdown Musculoskeletal: No Tenderness to Palpation of Joints or Extremities Lymphatic: No Cervical, Supraclavicular, or Inguinal Adenopathy Neurological: Cranial nerves II-XII grossly intact, Neuro grossly intact, Motor Exam 5/5 strength throughout Psych/Mental Status: Normal Affect, Appropriate, Alert and oriented to time, place, person, mood and affect Vital Signs Temp Pulse Resp BP Pulse Ox 98.3 F 81 14 101/59 L 88 09/29/18 07:14 09/29/18 11:09 09/29/18 07:14 09/29/18 07:14 09/29/18 07:40 Oxygen Flow Rate (L/min) 2 Oxygen Delivery Method Nasal Cannula Weight: 327 lb 13.238 oz Body Mass Index (BMI) 52.9 Intake and Output for Last 24 Hours 09/27/18 09/28/18 09/29/18 23:59 23:59 23:59 Intake Total 580 / 580 586 / 586 Balance 580 / 580 586 / 586 Laboratory Tests Past 24 Hrs 09/28/18 09/28/18 09/28/18 13:45 13:45 13:54 WBC 5.1 RBC 4.38 Hgb 12.3 Hct 38.2 MCV 87.2 MCH 28.1 MCHC 32.2 RDW 15.0 H RDW Differential 47.0 H Plt Count 155 MPV 9.4 Immature Gran % (Auto) 1.600 H Neut % (Auto) 48.3 Lymph % (Auto) 35.4 [place] % (Auto) 8.0 Eos % (Auto) 5.7 H Baso % (Auto) 1.0 Absolute Neuts (auto) 2.5 Absolute Lymphs (auto) 1.81 Total Counted Not Reportable ESR 21 H PT INR APTT D-Dimer Quant (PE/DVT) 0.39 Sodium Potassium Chloride Carbon Dioxide Anion Gap BUN Creatinine Estim Creat Clear Calc Est GFR (MDRD) Af Amer Est GFR (MDRD) Non-Af BUN/Creatinine Ratio Glucose Calcium Magnesium Total Bilirubin AST ALT Alkaline Phosphatase Troponin I Total Protein Albumin Globulin Albumin/Globulin Ratio Triglycerides Cholesterol LDL Cholesterol VLDL Cholesterol HDL Cholesterol TSH Free T4 09/28/18 09/28/18 09/28/18 13:54 13:54 18:18 WBC RBC Hgb Hct MCV MCH MCHC RDW RDW Differential Plt Count MPV Immature Gran % (Auto) Neut % (Auto) Lymph % (Auto) [place] % (Auto) Eos % (Auto) Baso % (Auto) Absolute Neuts (auto) Absolute Lymphs (auto) Total Counted ESR PT INR APTT D-Dimer Quant (PE/DVT) Sodium 137 Potassium 4.2 Chloride 103 Carbon Dioxide 29.0 Anion Gap 5 BUN 10 Creatinine 0.80 Estim Creat Clear Calc 81.38 Est GFR (MDRD) Af Amer 99 Est GFR (MDRD) Non-Af 82 BUN/Creatinine Ratio 12.6 Glucose 233 H Calcium 9.5 Magnesium 1.8 Total Bilirubin AST ALT Alkaline Phosphatase Troponin I < 0.015 < 0.015 Total Protein Albumin Globulin Albumin/Globulin Ratio Triglycerides Cholesterol LDL Cholesterol VLDL Cholesterol HDL Cholesterol TSH Free T4 1.18 09/28/18 09/29/18 09/29/18 21:20 05:05 05:05 WBC 5.6 RBC 4.06 L Hgb 11.5 L Hct 36.2 L MCV 89.2 MCH 28.3 MCHC 31.8 L RDW 15.2 H RDW Differential 48.9 H Plt Count 138 L MPV 9.2 Immature Gran % (Auto) Neut % (Auto) Lymph % (Auto) [place] % (Auto) Eos % (Auto) Baso % (Auto) Absolute Neuts (auto) Absolute Lymphs (auto) Total Counted ESR PT INR APTT D-Dimer Quant (PE/DVT) Sodium 142 Potassium 4.1 Chloride 103 Carbon Dioxide 30.0 Anion Gap 9 BUN 12 Creatinine 0.83 Estim Creat Clear Calc 78.44 Est GFR (MDRD) Af Amer 94 Est GFR (MDRD) Non-Af 78 BUN/Creatinine Ratio 14.4 Glucose 203 H Calcium 8.7 Magnesium Total Bilirubin 0.50 AST 13 L ALT 29 Alkaline Phosphatase 75 Troponin I < 0.015 Total Protein 6.5 Albumin 3.1 L Globulin 3.4 Albumin/Globulin Ratio 0.9 Triglycerides 320 H Cholesterol 154 LDL Cholesterol 67 VLDL Cholesterol 64 H HDL Cholesterol 23 L TSH 2.00 Free T4 09/29/18 05:05 WBC RBC Hgb Hct MCV MCH MCHC RDW RDW Differential Plt Count MPV Immature Gran % (Auto) Neut % (Auto) Lymph % (Auto) [place] % (Auto) Eos % (Auto) Baso % (Auto) Absolute Neuts (auto) Absolute Lymphs (auto) Total Counted ESR PT 13.5 INR 1.0 APTT 26.5 D-Dimer Quant (PE/DVT) Sodium Potassium Chloride Carbon Dioxide Anion Gap BUN Creatinine Estim Creat Clear Calc Est GFR (MDRD) Af Amer Est GFR (MDRD) Non-Af BUN/Creatinine Ratio Glucose Calcium Magnesium Total Bilirubin AST ALT Alkaline Phosphatase Troponin I Total Protein Albumin Globulin Albumin/Globulin Ratio Triglycerides Cholesterol LDL Cholesterol VLDL Cholesterol HDL Cholesterol TSH Free T4 POC Glucose 09/29/18 09/29/18 09/28/18 11:13 06:52 22:26 POC Glucose 195 H 238 H 175 H Diagnostic Data Chest X-Ray 09/28/18 12:59 IMPRESSION: Normal x-ray examination of the chest. Electronically Signed: Carlyle Easley MD at 13:25 EST Tel [phone], Service support , Stress echocardiogram(09/29/18) Interpretation Summary Normal resting LV systolic function. Nonstenotic valves. With stress, the LV size decreased and all segments augmented normally. The LVEF increased from 60% to 70%. Negative for ischemia at 92% of MPHR and at 1 METS. The patient was titrated from 10 mcg to a maximum of 20 mcg of dobutamine during the stress. Normal dobutamine stress echo Discharge Diet: Low fat/ Low Cholesterol Discharge Activity: Return to Normal Activity Weight Bearing Status: Weight bearing as tolerated Call your doctor if you observe: Shortness of breath, Chest pain, Increased palpitations (irregular heartbeat) Home Medications: Medications to take at Discharge Ascorbic Acid [Vitamin C] 2,000 mg PO PRN PRN 09/28/18 Atorvastatin Calcium [Lipitor] 20 mg PO QHS 09/28/18 Diazepam 2 mg PO DAILY PRN PRN 09/28/18 Furosemide [Lasix] 20 mg PO DAILY PRN PRN 09/28/18 Glimepiride [Amaryl] 4 mg PO DAILY 09/28/18 Levothyroxine [Synthroid] 150 mcg PO DAILY 09/28/18 Lisinopril [Zestril] 40 mg PO DAILY 09/28/18 Metformin HCl [Glucophage] 1,000 mg PO BID 09/28/18 Metformin HCl [Glucophage] 500 mg PO LUNCH 09/28/18 Tizanidine HCl [Zanaflex] 4 mg PO DAILY PRN PRN 09/28/18 Aspirin E.C. [Ecotrin] 81 mg PO DAILY@0800 #30 tab 09/29/18 Nitroglycerin [Nitrostat] 0.4 mg SUBLINGUAL Q5M PRN #30 tab 09/29/18 Following Prescrptions Were Given to Patient: Aspirin E.C. [Ecotrin] 81 mg PO DAILY@0800 #30 tab Nitroglycerin [Nitrostat] 0.4 mg SUBLINGUAL Q5M PRN #30 tab PRN Reason: Chest Pain Primary Care Physician: Letty Perkins MD [Primary Care Provider] - Please follow up with your Primary Care Physician in: one week Patient Instructions: What Is Angina?, Warning Signs of a Heart Attack Disposition: Home Minutes spent on discharge:: 37 Patient Condition:: Stable Medical Necessity - Tobacco Use Smoking Status: Former smoker - Quit smoking approximately 2000, smoked approximately one half to three-quarter pack per day cigarettes for approximately 2 years. Tobacco Use: Non-smoker Meaningful Use Info Meaningful Use Diagnoses (Choose all that apply): None applicable Code Visit Inpatient E&M: 19277 Disch Hosp
--- NOTE | 2018-09-29 11:51 | DCINST_ITS ---
- Discharge Diagnoses Current Active Problems: Current Active and Chronic Problems Chest pain (Acute) HTN (hypertension) (Chronic) HLD (hyperlipidemia) (Chronic) Morbid obesity (Chronic) SAMUEL (obstructive sleep apnea) (Chronic) Leg muscle spasm (Chronic) Hypothyroidism (Chronic) You will use the following diet at home:: Cardiac Your food should be the consistency of: Regular Your liquids should be the consistency of: Regular/Thin Discharge Activity: Return to Normal Activity Weight Bearing Status: Weight bearing as tolerated Call your doctor if you observe: Shortness of breath, Chest pain, Increased palpitations (irregular heartbeat) Instructions: What Is Angina?, Warning Signs of a Heart Attack Allergies/Adverse Reactions: Allergies No Known Allergies Allergy (Verified 09/28/18 12:17) Medications to take at Discharge Ascorbic Acid [Vitamin C] 2,000 mg PO PRN PRN 09/28/18 Atorvastatin Calcium [Lipitor] 20 mg PO QHS 09/28/18 Diazepam 2 mg PO DAILY PRN PRN 09/28/18 Furosemide [Lasix] 20 mg PO DAILY PRN PRN 09/28/18 Glimepiride [Amaryl] 4 mg PO DAILY 09/28/18 Levothyroxine [Synthroid] 150 mcg PO DAILY 09/28/18 Lisinopril [Zestril] 40 mg PO DAILY 09/28/18 Metformin HCl [Glucophage] 1,000 mg PO BID 09/28/18 Metformin HCl [Glucophage] 500 mg PO LUNCH 09/28/18 Tizanidine HCl [Zanaflex] 4 mg PO DAILY PRN PRN 09/28/18 Aspirin E.C. [Ecotrin] 81 mg PO DAILY@0800 #30 tab 09/29/18 Nitroglycerin [Nitrostat] 0.4 mg SUBLINGUAL Q5M PRN #30 tab 09/29/18 The following prescriptions were given: Aspirin E.C. [Ecotrin] 81 mg PO DAILY@0800 #30 tab Nitroglycerin [Nitrostat] 0.4 mg SUBLINGUAL Q5M PRN #30 tab PRN Reason: Chest Pain Primary Care Physician: Letty Perkins MD [Primary Care Provider] - Please follow up with your Primary Care Physician in: one week Test Results: Test results from this visit will be discussed in further detail at your follow- up appointment, if applicable. Proposed Discharge Date: 09/29/18
--- NOTE | 2018-09-29 12:46 | PHA.DC.COU ---
Pharmacy Services has performed discharge medication counseling for this patient. The patient was counseled on the following discharge medications and changes in medications for homegoing review. Aspirin E.C. [Ecotrin] 81 mg PO DAILY@0800 #30 tab 09/29/18 Nitroglycerin [Nitrostat] 0.4 mg SUBLINGUAL Q5M PRN #30 tab 09/29/18 The Reason for Use, instructions for use, and potential side effects were reviewed for all new medications. The patient's questions regarding all of their medications were answered. The patient was able to verbally demonstrate an understanding of their discharge medications.
== END 2018-09-29 11:50 | disposition home or self-care (01) ==
LOC: ED 16:28 → PCU 16:56
PROVIDERS: Admitting Provider Family Medicine; Emergency Provider Emergency Medicine; Family Provider Internal Medicine; PCP Internal Medicine; Visit Provider Student in an Organized Health Care Education/Training Program
DX: R07.89 Other chest pain (principal); I10 Essential (primary) hypertension; E78.5 Hyperlipidemia, unspecified; E66.01 Morbid (severe) obesity due to excess calories; Z68.43 Body mass index [BMI] 50.0-59.9, adult; Z71.3 Dietary counseling and surveillance; G47.33 Obstructive sleep apnea (adult) (pediatric); Z79.899 Other long term (current) drug therapy; Z79.84 Long term (current) use of oral hypoglycemic drugs; E03.9 Hypothyroidism, unspecified; Z87.891 Personal history of nicotine dependence; K21.9 Gastro-esophageal reflux disease without esophagitis; Z85.42 Personal history of malignant neoplasm of other parts of uterus; E11.9 Type 2 diabetes mellitus without complications; R06.00 Dyspnea, unspecified; M51.36 Other intervertebral disc degeneration, lumbar region; M62.838 Other muscle spasm
CPT/HCPCS: 36415; 71046; 80048; 80053; 80061; 82962; 83735; 84439; 84443; 84484; 85025; 85027; 85379; 85610; 85652; 85730; 93005; 93017; 93350; 96360; 96361; 99218; 99283; J7030; J7040; Q9957; A4216; C8928; G0378

== ENCOUNTER 2024-03-21 16:26 | Emergency (ER) | payer MEDICARE, MEDICAID, SELFPAY ==
[2024-03-21 16:27] VITALS: BP 134/89; PULSE 103; RESP 18; TEMP 36.4; O2SAT 98; BMI 46.7
--- NOTE | 2024-03-21 19:32 | EX.ED.UPPERE ---
HPI History of Present Illness Chief Complaint: Upper Extremity Injury Narrative Narrative: 53-year-old female presenting with pain in the left antecubital fossa. She states she noted the other day that it was hurting. Today she tried heat on it and used her coffee cup which was warm and she felt it made this feel better but that she was icing it was worse. She noticed that there is some raised veins in the left forearm which is mildly painful. No history of DVT/PE. 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/28/18 [History Last Taken 09/28/18] atorvastatin 20 mg tablet 20 mg PO QHS 09/28/18 [History Last Taken 09/27/18] diazepam 2 mg tablet 2 mg PO DAILY PRN PRN Spasms 09/28/18 [History Last Taken 09/25/18] furosemide 20 mg tablet 20 mg PO DAILY PRN PRN Swelling 09/28/18 [History Last Taken 09/21/18] glimepiride 4 mg tablet 4 mg PO DAILY 09/28/18 [History Last Taken 09/28/18] levothyroxine 150 mcg tablet 150 mcg PO DAILY 09/28/18 [History Last Taken 09/27/18] lisinopril 40 mg tablet 40 mg PO DAILY bp 09/28/18 [History Last Taken 09/28/18] metformin 500 mg tablet 1,000 mg PO BID 09/28/18 [History Last Taken 09/28/18] metformin 500 mg tablet 500 mg PO LUNCH 09/28/18 [History Last Taken 09/27/18] tizanidine 4 mg capsule (Zanaflex) 4 mg PO DAILY PRN PRN Spasms 09/28/18 [History Last Taken 09/27/18] aspirin 81 mg tablet,delayed release 81 mg PO DAILY@0800 #30 tabs 09/29/18 [Rx Last Taken Unknown] nitroglycerin 0.4 mg sublingual tablet 0.4 mg sublingual Q5M PRN Chest Pain #30 tabs 09/29/18 [Rx Last Taken Unknown] Allergy/AdvReac Type Severity Reaction Status Date / Time No Known Allergies Allergy Verified 03/21/24 16:27 Social History Smoking Status: Former smoker ROS ROS ED Constitutional Constitutional ED: Denies chills, fever(s) or sweats Eyes Eyes: Denies blurry vision or change in vision ENT ENT ED: Denies ear pain or sore throat Cardiovascular Cardiovascular: Denies chest pain, palpitations or racing heartbeat Respiratory/Chest Respiratory/Chest: Denies cough, dyspnea or sputum Gastrointestinal Gastrointestinal: Denies abdominal pain, constipation, diarrhea, nausea or vomiting Genitourinary Genitourinary ED: Denies dysuria, hematuria or urinary frequency Musculoskeletal Musculoskeletal: Reports other Details: Pain in left antecubital fossa ; Denies arthralgias, myalgias or neck pain Integumentary Denies abscess, Abrasions or rash Neurologic Neurologic: Denies headache(s), paresthesias or weakness Psychiatric Psychiatric: Denies anxiety, depression, suicidal ideation or suicidal thoughts Endocrine Endocrinology: Denies polydipsia or polyuria EXAM Physical Exam Const Vital Signs: 03/21/24 16:27 Temperature 97.6 F L Temperature Source Temporal Pulse Rate 103 H Respiratory Rate 18 Blood Pressure 134/89 H Blood Pressure Mean 104 Pulse Ox 98 Oxygen Delivery Method Room Air Positive well nourished General Appearance ED: NAD HEENT Reports moist mucous membranes normocephalic and atraumatic Resp normal respiratory effort GI non-tender Extremity Extremity Narrative: Blood counts tenderness to palpation over the left antecubital fossa exam I noted proximal forearm on the volar/slightly lateral surface. There is no obvious superficial thrombophlebitis. Compartments are soft. Flexion and extension as well as pronation and supination are maintained. Neuro oriented x3 and CN's II-XII intact bilaterally Sensorium / Orientation: alert Motor Exam: strength 5/5 throughout Psych mental status grossly normal MDM MDM MDM Narrative Medical decision making narrative: Patient presenting with concern for possible blood clot. On examination I do not see any evidence of this. I did health counselor her we do not have ultrasound here but I would happily give her duplex for tomorrow as an outpatient and she was amenable to this. I do believe she is anticoagulated overnight. She has not had any injury to suggest she needs x-rays. Patient counseled Tylenol, ice, ibuprofen. Return precautions discussed. Impression: 1. Left forearm pain Discharge Plan Triage Chief Complaint: Upper Extremity Injury ED Provider: Keegan Marrero Dx/Rx/DC Orders Instructions: ED Contusion, Upper Extremity Prescriptions: No Action metformin 500 MG tablet 1,000 mg PO BID metformin 500 MG tablet 500 mg PO LUNCH atorvastatin 20 MG tablet 20 mg PO QHS diazepam 2 MG tablet 2 mg PO DAILY PRN PRN (Reason: Spasms) glimepiride 4 MG tablet 4 mg PO DAILY levothyroxine 150 MCG tablet 150 mcg PO DAILY furosemide 20 MG tablet 20 mg PO DAILY PRN PRN (Reason: Swelling) lisinopril 40 MG tablet 40 mg PO DAILY tizanidine [Zanaflex] 4 MG capsule 4 mg PO DAILY PRN PRN (Reason: Spasms) ascorbic acid (vitamin C) [Vitamin C] 500 MG tablet,chewable 2,000 mg PO PRN PRN (Reason: Supplement 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 - Location: [facility] Ordered By: Dr. Keegan Marrero Primary Care Provider: Letty Perkins Referrals: Letty Perkins MD [[facility]] - Disposition Disposition: Home, Self Care Discharge Date/Time: 03/21/24 17:29
== END 2024-03-21 17:29 | disposition home or self-care (01) ==
PROVIDERS: Emergency Provider Student in an Organized Health Care Education/Training Program; PCP Internal Medicine; Visit Provider Student in an Organized Health Care Education/Training Program
DX: M79.632 Pain in left forearm (principal); Z87.891 Personal history of nicotine dependence
CPT/HCPCS: 99282

== ENCOUNTER → 2024-03-22 | Outpatient (CLI) | payer MEDICARE, MEDICAID, SELFPAY ==
--- NOTE | 2024-03-22 11:09 | VDUE_ITS ---
Reason For Study: Left arm swelling Left Proximal Left jugular vein is spontaneous, widely patent, phasic, with no intraluminal echogenicity noted. Left subclavian vein is spontaneous, widely patent, phasic, with no intraluminal echogenicity noted. Left Arm Left axillary vein is spontaneous, patent, phasic, competent, compressible and demonstrates augmentation. Left brachial vein is compressible. Left cephalic vein is compressible. Left basilic vein is compressible. Left Lower Arm Left radial vein is compressible. Left ulnar vein is compressible. Patient Safety Preliminary report given to PCP: Dr. Perkins. Patient seen in ED 03/21/2024, done as next day ED. VL/Venous Duplex US, Unilateral Interpretation Summary Deep veins of the left upper extremity are patent and compressible segmentally. There is no evidence of deep vein thrombosis. Superficial veins of the left upper extremity are patent and compressible segme ntally. There is no evidence of superficial vein thrombosis. Ordering Physician: Keegan Marrero Referring Physician: Letty Perkins M.D. Performed By: Lu Roger RVT ???
== END | disposition home or self-care (01) ==
LOC: CVS 11:06
PROVIDERS: PCP Internal Medicine; Referring Provider Student in an Organized Health Care Education/Training Program; Visit Provider Student in an Organized Health Care Education/Training Program
DX: M79.89 Other specified soft tissue disorders (principal)
CPT/HCPCS: 93971